=== PATIENT | female | born 1995 | race African-American/Black ===

== ENCOUNTER 2020-05-15 00:03 | Emergency (ER) | payer BC ==
[~2020-05-15] VITALS: Ht 154.9 cm; Wt 63.6 kg
[2020-05-15 01:10] VITALS: BP 118/82
--- NOTE | 2020-05-15 01:55 | PHYS DOC ---
Past History Past Medical History: Anxiety, Asthma General Adult EDM: Chief Complaint: ASTHMA HPI: HPI: "My.. asthma is worse tonight.. " " I need some meds and breathing treatments..." " I can't wait around all night.." Patient is a 24 year old female who presents with above hx of asthma exacerbation. Patient not has been on steroids recently. Has been exposed to mold in her apartment. Patient never has never been intubated for her asthma. Has never has been hospitalized for asthma exacerbations. Asthma exacerbations appears at seasonal episodes or changes. . Patient does not know her best peak flow. Patient does not do flu vaccinations. Patient did not do Pneumovax. Patient denies any travel or specific ill contacts. Patient denies any history of immunosuppression. Patient does not have a asthma rescue plan. No history of PFTs. Patient has normal sats. Patient is amatory without problems. Patient does have some scattered wheezes. Pt no intercostal retractions. No respiratory distress. Patient denies any specific ill contacts. No recent travel outside [facility] area. Patient has had symptoms for last 2 days.. Patient does not follow-up with primary care. Pt. has not tried any over the counter meds for her seasonal allergies. Review of Systems: Review of Systems: Constitutional: Denies fever or chills Eyes: Denies change in visual acuity HENT: Complaints of nasal congestion and seasonal allergies. Respiratory: Complaints of wheezing. Cardiovascular: Denies chest pain or edema GI: Denies abdominal pain, nausea, vomiting, bloody stools or diarrhea : Denies dysuria Musculoskeletal: Denies back pain or joint pain Integument: Denies rash Neurologic: Denies headache, focal weakness or sensory changes Endocrine: Denies polyuria or polydipsia Lymphatic: Denies swollen glands Psychiatric: Hx of anxiety Family History: Family History: Noncontributory to presentation Current Medications: Current Meds: Current Medications Medications (Trade) Dose Ordered Sig/Pamella Start Time Stop Time Status Last Admin Dose Admin Albuterol Sulfate (Ventolin Hfa Inhaler) 1 puff 1X ONCE 05/15/20 02:00 05/15/20 02:01 05/15/20 01:55 1 PUFF Allergies: Allergies: Allergies Coded Allergies Type Severity Reaction Last Updated Verified No Known Drug Allergies 05/15/20 No Physical Exam: PE: Constitutional: Well developed, well nourished, no acute distress, non-toxic appearance. [] HENT: Normocephalic, atraumatic, bilateral external ears normal, oropharynx frantz st, no oral exudates, nose slightly en large turbinates. Some clear rhinorrhea. Some mild posterior pharyngeal drainage. Eyes: PERRLA, EOMI, conjunctiva normal, no discharge. [] Neck: Normal range of motion, no tenderness, supple, no stridor. No adenopathy Cardiovascular:Heart rate regular rhythm, no murmur [] Lungs & Thorax: Bilateral breath sounds equal apex with few scattered wheezes on auscultation [. Has] no intercostal retractions. No desaturations. The trachea is midline. Abdomen: Bowel sounds normal, soft, no tenderness, no masses, no pulsatile masses. [] Skin: Warm, dry, no erythema, no rash. [] Back: No tenderness, no CVA tenderness. [] Extremities: No tenderness, no cyanosis, no clubbing, ROM intact, no edema. No cording in legs. Neurologic: Alert and oriented X 3, normal motor function, normal sensory function, no focal deficits noted. [] Psychologic: Affect anxious, impatient, angry that there is a emergency room delaying in care. Feels she should have been seen immediately in spite of a high volumes in the emergency department. Pt was seen by Nurse shortly after arrival and place in [facility]. EKG: EKG: [] Radiology/Procedures: Radiology/Procedures: [] Heart Score: Risk Factors: Risk Factors: DM, Current or recent (<one month) smoker, HTN, HLP, family history of CAD, obesity. Risk Scores: Score 0 - 3: 2.5% MACE over next 6 weeks - Discharge Home Score 4 - 6: 20.3% MACE over next 6 weeks - Admit for Clinical Observation Score 7 - 10: 72.7% MACE over next 6 weeks - Early Invasive Strategies Course & Med Decision Making: Course & Med Decision Making Pertinent Labs and Imaging studies reviewed. (See chart for details) Patient to take prednisone 50 mg a day for 5 days. Patient use MDI with spacer 2 puffs 4 times a day. Patient follow-up primary care. Patient encouraged to get flu vaccination. Patient encouraged to wear a mask that covers her nose and mouth at all times. Patient encouraged to develop asthma action plan. Patient follow-up primary care. Patient return for any concerns. Patient was instructed on how to use MDI with a spacer by respiratory. Patient may take Benadryl 25 mg up to 4 times a day for nasal congestion and drainage. Must establish a primary care. Document peak flow s in AM pre and post MDI tx. and show results to primary on followup. Patient consider [id number] nasal steroids during seasonal exacerbations for congestion and nasal drainage. Patient encouraged to get flu vaccination. Patient encouraged to get Pneumovax. Patient encouraged to return if any concerns, but must follow up. Impression: 1. Mild asthma exacerbation [] Dragon Disclaimer: Dragon Disclaimer: This electronic medical record was generated, in whole or in part, using a voice recognition dictation system. Departure Departure: Disposition: 01 DC HOME SELF CARE/HOMELESS Condition: STABLE Referrals: PCP,NO (PCP) Scripts Prednisone (PREDNISONE) 50 Mg Tablet 50 MG PO DAILY for astma for 5 Days, #5 TAB Prov: NICK ADKINS MD 05/15/20 Shantell Disclaimer This chart was dictated in whole or in part using Voice Recognition software in a busy, high-work load, and often noisy Emergency Department environment. It may contain unintended and wholly unrecognized errors or omissions. NICK ADKINS MD May 15, 2020 01:55
[2020-05-15] MEDS ORDERED: ALBUTEROL SULFATE 8GM INHALER. INH ONE (02:00)
[2020-05-15] MEDS ORDERED: predniSONE 10 MG TABLET PO ONE (02:00)
[2020-05-15] MEDS ORDERED: PRED50TA PO (02:00)
== END 2020-05-15 02:12 | disposition home or self-care (01) ==
LOC: ER 00:03
DX: J45.901 Unspecified asthma with (acute) exacerbation (principal); F41.9 Anxiety disorder, unspecified
CPT/HCPCS: 94640; 99283; J7512; J7613; 94664

== ENCOUNTER 2020-08-09 21:56 | Emergency (ER) | payer BC ==
[~2020-08-09] VITALS: Ht 154.9 cm; Wt 74.9 kg
[~2020-08-09 21:56] MED LIST: PRED50TA PO
--- NOTE | 2020-08-09 22:09 | PHYS DOC ---
Past History Past Medical History: Anxiety, Asthma Past Surgical History: No Surgical History Smoking: Non-smoker Alcohol Use: None Drug Use: None General Adult EDM: Chief Complaint: ABDOMINAL PAIN HPI: HPI: Patient is a 24 year old female that presents to the ED with "crampy" abdominal pain for the last few weeks. Pain is intermittent and located periumbilical, a 5/10 on pain scale. Pain is non-radiating. Patient also reports nausea for the last week, but no vomiting. Last menstrual period was 07/09/20, and patient is sexually active with no concern for STI. Last bowel movement was yesterday and normal. Denies dysuria, constipation, vaginal bleeding or discharge. Patient denies history of previous pregnancies. No other symptoms or complaints at this time. Review of Systems: Review of Systems: Constitutional: Denies fever or chills Eyes: Denies redness or eye pain HENT: Denies nasal congestion or sore throat Respiratory: Denies cough or shortness of breath Cardiovascular: Denies chest pain or palpitations GI: Positive for crampy abdominal pain and nausea; denies vomiting : Denies dysuria or hematuria Musculoskeletal: Denies back pain or joint pain Integument: Denies rash or skin lesions Neurologic: Denies headache, focal weakness or sensory changes Complete systems were reviewed and found to be within normal limits, except as documented in this note. Allergies: Allergies: Allergies Coded Allergies Type Severity Reaction Last Updated Verified No Known Drug Allergies 05/15/20 No Physical Exam: PE: Constitutional: Well developed, well nourished, no acute distress, non-toxic appearance HENT: Normocephalic, atraumatic Eyes: PERRL, EOMI, conjunctiva normal, no discharge Neck: Normal range of motion, no tenderness, supple Lungs & Thorax: No respiratory distress, equal chest rise and fall Abdomen: Soft, no tenderness, no guarding/rebound tenderness/distention Skin: Warm, dry, no erythema, no rash Back: No tenderness, no CVA tenderness Extremities: No tenderness, ROM intact, no edema Neurologic: Alert and oriented X 3, normal motor function, normal sensory function, no focal deficits noted Psychologic: Affect normal, judgment normal Course & Med Decision Making: Course & Med Decision Making Pertinent Labs reviewed. (See chart for details) Patient is a 24 year old female that presented with abdominal pain for last couple weeks. Due to chance of , we checked a test and it was positive. UA without acute process. Abdomen nonperitoneal.. Recommended patient start a vitamin, and schedule an appointment with an OB. Rx also written for Zofran ODT. 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 Discussed findings and plan with patient and family, who acknowledge understanding and agreement. Shantell Disclaimer: Shantell Disclaimer: This electronic medical record was generated, in whole or in part, using a voice recognition dictation system. Departure Departure: Impression: Primary Impression: Qualified Codes: Z34.90 - Encounter for supervision of normal , unspecified, unspecified trimester Disposition: 01 DC HOME SELF CARE/HOMELESS Condition: STABLE Referrals: MIRANDA KAIS[facility] (PCP) Patient Instructions: ABCs of Scripts Pnv No.122/Iron/Folic Acid ( Multi Tablet) 1 Each Tablet 1 TAB PO DAILY for for 30 Days, #30 TAB 0 Refills Prov: JAYASHREE CAMPOS DO 08/09/20 Ondansetron (ONDANSETRON ODT) 4 Mg Tab.rapdis 1 TAB PO PRN Q6-8HRS PRN for NAUSEA, #16 TAB Prov: JAYASHREE CAMPOS DO 08/09/20 JAYASHREE CAMPOS DO Aug 09, 2020 22:09
[2020-08-09 22:10] VITALS: BP 124/84
[2020-08-09 22:36] LABS: BACTERIA,URINE 0 /HPF (0-FEW); BILIRUBIN,URINE NEG (NEG); CLARITY,URINE CLEAR; COLOR,URINE YELLOW; GLUCOSE,URINE NEG (NEG); NITRITE,URINE NEG (NEG); RBC,URINE 0 /HPF (0-2); SQUAMOUS EPITHELIAL CELL,UR FEW /LPF; UROBILINOGEN,URINE 0.2 mg/dL (0.2 mg/dL); WBC,URINE OCC /HPF (0-4)
[2020-08-09] MEDS ORDERED: PNV1TABL78 PO (22:54)
[2020-08-09] MEDS ORDERED: ONDA4TAB12 PO (22:54)
== END 2020-08-09 22:57 | disposition home or self-care (01) ==
LOC: ER 21:56
DX: O26.891 Other specified pregnancy related conditions, first trimester (principal); R10.33 Periumbilical pain; O99.511 Diseases of the respiratory system complicating pregnancy, first trimester; J45.909 Unspecified asthma, uncomplicated; Z3A.00 Weeks of gestation of pregnancy not specified
CPT/HCPCS: 81001; 81025; 99283

== ENCOUNTER 2020-09-14 20:37 | Emergency (ER) | payer BC ==
[~2020-09-14] VITALS: Ht 154.9 cm; Wt 73.2 kg
[~2020-09-14 20:37] MED LIST changes: +ONDA4TAB12 PO; +PNV1TABL78 PO
--- NOTE | 2020-09-14 20:51 | PHYS DOC ---
Past History Past Medical History: Asthma (JAYASHREE PITTMAN APRN) Past Surgical History: No Surgical History (JAYASHREE PITTMAN APRN) Smoking: Non-smoker Alcohol Use: None Drug Use: None (JAYASHREE PITTMAN APRN) Adult General Chief Complaint Chief Complaint: VAGINAL BLEEDING HPI HPI Patient is a 24-year-old female presents emergency department complaining of nausea all day with vomiting x2 today while at work, patient reports being just under 10 weeks .. Patient states she was at work for the past 2 hours and was unable to take it any longer and had to go home ill. Patient also states she noticed some dark red vaginal spotting today. Patient denies any lower abdominal pain, denies cramping of her abdomen. Patient denies diarrhea or constipation. Patient denies any fever or chills, denies chest pain, denies shortness of breath, denies chest congestion or nasal congestion, denies visual changes, denies headaches, denies loss of taste or loss of smell. Patient states she sees OB specialist Dr. Conn at [facility]. Patient reports having a normal sonogram last week. Patient states this is her first . Patient reports her last menstrual cycle was July 092019, patient reports a EDC April 15, 2021. Patient denies any other vaginal discharge, denies burning with urination or urinary tract infection type signs and symptoms, patient denies STI concerns. Patient denies any other physical concerns or physical complaints. (JAYASHREE PITTMAN APRN) Review of Systems Review of Systems 14 body systems of review of systems have been reviewed. See HPI for pertinent positives and negative responses, otherwise all other systems are negative, nonpertinent or noncontributory. (JAYASHREE PITTMAN APRN) Allergies Allergies Allergies Coded Allergies Type Severity Reaction Last Updated Verified No Known Drug Allergies 05/15/20 No (JAYASHREE PITTMAN APRN) Physical Exam Physical Exam Constitutional: Well developed, well nourished, no acute distress, non-toxic appearance. 24-year-old female in no apparent distress. HENT: Normocephalic, atraumatic, bilateral external ears normal, oropharynx moist, no oral exudates, nose normal. Eyes: PERRLA, EOMI, conjunctiva normal, no discharge. Neck: Normal range of motion, no tenderness, supple, no stridor. Cardiovascular:Heart rate regular rhythm, no murmur Lungs & Thorax: Bilateral breath sounds clear to auscultation Abdomen: Bowel sounds normal, soft, no tenderness, no masses, no pulsatile masses. Skin: Warm, dry, no erythema, no rash. Back: No tenderness, no CVA tenderness. Extremities: No tenderness, no cyanosis, no clubbing, ROM intact, no edema. Neurologic: Alert and oriented X 3, normal motor function, normal sensory function, no focal deficits noted. Psychologic: Affect normal, judgement normal, mood normal. (JAYASHREE PITTMAN APRN) Current Patient Data Lab Results Laboratory Tests Test 09/14/20 20:50 09/14/20 21:05 Urine Collection Type Unknown Urine Color Irene Urine Clarity Clear Urine pH 5.5 Urine Specific [place] >=1.030 Urine Protein Neg Urine Glucose (UA) Neg mg/dL Urine Ketones (Stick) 15 mg/dL Urine Blood Trace Urine Nitrite Neg Urine Bilirubin Neg Urine Urobilinogen Dipstick 0.2 mg/dL Urine Leukocyte Esterase Neg Urine RBC 0 /HPF Urine WBC 0 /HPF Urine Squamous Epithelial Cells Mod /LPF Urine Bacteria 0 /HPF White Blood Count 11.2 x10^3/uL Red Blood Count 4.50 x10^6/uL Hemoglobin 12.3 g/dL Hematocrit 38.0 % Mean Corpuscular Volume 85 fL Mean Corpuscular Hemoglobin 27 pg Mean Corpuscular Hemoglobin Concent 32 g/dL Red Cell Distribution Width 14.9 % Platelet Count 340 x10^3/uL Neutrophils (%) (Auto) 72 % Lymphocytes (%) (Auto) 19 % Monocytes (%) (Auto) 7 % Eosinophils (%) (Auto) 2 % Basophils (%) (Auto) 0 % Neutrophils # (Auto) 8.0 x10^3uL Lymphocytes # (Auto) 2.1 x10^3/uL Monocytes # (Auto) 0.8 x10^3/uL Eosinophils # (Auto) 0.2 x10^3/uL Basophils # (Auto) 0.0 x10^3/uL Sodium Level 139 mmol/L Potassium Level 3.6 mmol/L Chloride Level 103 mmol/L Carbon Dioxide Level 25 mmol/L Anion Gap 11 Blood Urea Nitrogen 12 mg/dL Creatinine 0.7 mg/dL Estimated GFR (Cockcroft-Gault) 125.5 Glucose Level 91 mg/dL Calcium Level 9.7 mg/dL Current Medications Medications (Trade) Dose Ordered Sig/Pamella Route PRN Reason Start Time Stop Time Status Last Admin Dose Admin Ondansetron HCl (Zofran Odt) 4 mg 1X ONCE PO 09/14/20 21:15 09/14/20 21:17 DC 09/14/20 21:18 (JAYASHREE PITTMAN APRN) EKG EKG [] (JAYASHREE PITTMAN APRN) Radiology/Procedures Radiology/Procedures [] (JAYASHREE PITTMAN APRN) Radiology/[place] [id number] IMAGING REPORT Signed PATIENT: LYNETTE CAMACHO ACCOUNT: [id number] : 1995 LOCATION: ER AGE: 24 SEX: F EXAM STATUS: REG ER ORD. PHYSICIAN: JAYASHREE PITTMAN APRN REASON: VAGINAL BLEEDING PROCEDURE: OB <14 WKS Exam: Ultrasound pelvis Indication: Vaginal bleeding Technique: Real-time grayscale and color Doppler images of the pelvis were obtained by the department geotechnical engineering technician. Comparisons: None FINDINGS: Uterus measures 10.0 x 9.5 x 8.0 cm. Within the endometrium there is a gestational sac with pole which measures 3.1 cm corresponding to 10 weeks 0 days gestation. heart rate is measured at all 162 bpm. Right ovary measures 3.7 x 2.0 x 2.0 cm. Left ovary measures 3.5 x 2.5 x 2.5 cm. Vascular flow identified within the ovaries bilaterally. No free fluid identified in the pelvis. IMPRESSION: 1. Single live intrauterine gestation of 10 weeks 2 days by LMP with concordant ultrasound. 2. Dedicated survey is recommended at 18-20 weeks gestation. Electronically signed by: Tamra Ramirez MD (09/14/2020 10:14 PM) [facility] DICTATED AND SIGNED BY: TAMRA RAMIREZ MD DATE: 09/14/202211 CC: JAYASHREE PITTMAN APRN; MIRANDA KAISER ~MTH0 0 (NICK ADKINS MD) Heart Score Risk Factors: Risk Factors: DM, Current or recent (<one month) smoker, HTN, HLP, family history of CAD, obesity. Risk Scores: Risk Factors: DM, Current or recent (<one month) smoker, HTN, HLP, family history of CAD, obesity. (JAYASHREE PITTMAN APRN) Course & Med Decision Making Course & Med Decision Making Pertinent Labs and Imaging studies reviewed. (See chart for details) 24-year-old female, vital signs reviewed, presents emergency department with concerns of vaginal bleeding with nausea vomiting while being . Patient's physical exam was unremarkable, the patient is in no apparent distress. Will obtain a urine assay, urine GC/chlamydia in ER today. Will obtain heart tones, draw CBC/BMP/beta hCG quant/type and Rh, will rule out RhoGam candidate. Will give 4 mg ODT Zofran in ED today. heart tones 166 performed by ED nursing staff at bedside by Doppler. The patient's urine was not infected, patient currently in radiology for sono study, type and screen pending to rule out RhoGam candidate. Discussed patient case with ED attending Dr. Adkins who has agreed to assume care at this time. (JAYASHREE PITTMAN APRN) Course & Med Decision Making Impression: 1. Threaten 2. Intrauterine -EDC 04/12/2021 3 . Mother blood type O+ 4. Hemoglobin 11.2 5. Beta hCG is 137, 508 6. G1 Patient continue vitamins. Keep track of bleeding. If further problems follow-up at hospital where she plans to deliver for continuity of care. Follow-up with primary care as well as her HYDROGRAPHIC ENGINEER. Follow-up pending cultures and labs. (NICK ADKINS MD) Dragon Disclaimer Dragon Disclaimer This electronic medical record was generated, in whole or in part, using a voice recognition dictation system. (JAYASHREE PITTMAN APRN) Departure Departure: Referrals: MIRANDA KAISER (PCP) JAYASHREE PITTMAN APRN Sep 14, 2020 20:51 NICK ADKINS MD Sep 14, 2020 23:05
[2020-09-14] MEDS ORDERED: ONDANSETRON ODT 4 MG TAB.RAPDIS PO ONE (21:15)
[2020-09-14 21:30] LABS: BASO % 0 % (0-3); EOS # 0.2 x10^3/uL (0.0-0.7); EOS % 2 % (0-3); HEMOGLOBIN 12.3 g/dL (12.0-15.5); LYMPH # 2.1 x10^3/uL (1.0-4.8); LYMPH % 19 % (24-48); MEAN CORPUSCULAR HEMOGLOBIN 27 pg (25-35); MEAN CORPUSCULAR HGB CONC 32 g/dL (31-37); MEAN CORPUSCULAR VOLUME 85 fL (79-100); MONO # 0.8 x10^3/uL (0.0-1.1); MONO % 7 % (0-9); NEUT % 72 % (31-73); PLATELET COUNT 340 x10^3/uL (140-400); RED CELL DISTRIBUTION WIDTH 14.9 % (11.5-14.5); WHITE BLOOD COUNT 11.2 x10^3/uL (4.0-11.0)
[2020-09-14 21:39] LABS: CALCIUM 9.7 mg/dL (8.5-10.1); CREATININE 0.7 mg/dL (0.6-1.0); GFR 125.5; POTASSIUM 3.6 mmol/L (3.5-5.1)
[2020-09-14 21:40] LABS: BACTERIA,URINE 0 /HPF (0-FEW); BILIRUBIN,URINE NEG (NEG); CLARITY,URINE CLEAR; COLOR,URINE AMBER; GLUCOSE,URINE NEG (NEG); NITRITE,URINE NEG (NEG); RBC,URINE 0 /HPF (0-2); SQUAMOUS EPITHELIAL CELL,UR MOD /LPF; UROBILINOGEN,URINE 0.2 mg/dL (0.2 mg/dL); WBC,URINE 0 /HPF (0-4)
--- NOTE | 2020-09-14 22:17 | RAD ---
Exam: Ultrasound pelvis Indication: Vaginal bleeding Technique: Real-time grayscale and color Doppler images of the pelvis were obtained by the department marketing underwriter. Comparisons: None FINDINGS: Uterus measures 10.0 x 9.5 x 8.0 cm. Within the endometrium there is a gestational sac with sophia e which measures 3.1 cm corresponding to 10 weeks 0 days gestation. heart rate is measured at a ll 162 bpm. Right ovary measures 3.7 x 2.0 x 2.0 cm. Left ovary measures 3.5 x 2.5 x 2.5 cm. Vascular flow identified within the ovaries bilaterally. No free fluid identified in the pelvis. IMPRESSION: 1. Single live intrauterine gestation of 10 weeks 2 days by LMP with concordant ultrasound. 2. Dedicated survey is recommended at 18-20 weeks gestation. Electronically signed by: Tamra Sharp MD (09/14/2020 10:14 PM) [facility]
[2020-09-14 23:35] VITALS: BP 115/81
== END 2020-09-14 23:35 | disposition home or self-care (01) ==
LOC: ER 20:37
DX: O20.0 Threatened abortion (principal); O21.9 Vomiting of pregnancy, unspecified; R79.89 Other specified abnormal findings of blood chemistry; J45.909 Unspecified asthma, uncomplicated; Z3A.10 10 weeks gestation of pregnancy
CPT/HCPCS: 76801; 80048; 81001; 84702; 85025; 86850; 86900; 86901; 87491; 87591; 99284; Q0162

== ENCOUNTER 2021-05-08 02:52 | Emergency (ER) | payer BC ==
[~2021-05-08] VITALS: Ht 154.9 cm; Wt 69.0 kg
--- NOTE | 2021-05-08 02:57 | PHYS DOC ---
Past History Past Medical History: Anemia, Asthma, IBS, UTI Past Medical History G1T1 Past Surgical History: Other Additional Past Surgical Histo: wisdom teeth Smoking: Non-smoker Alcohol Use: None Drug Use: None General Adult HPI: HPI: "...I woke up with some abdomen pain... right here in center.. I have had some GERD stuff in pass.. My mom said I should come in and get checked for infection.. sometimes my mom said you can get a UTI after delivery.. I delivered Apr.19.. .. He was 8 pounds and 16 oz... 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 Patient advised to take some ibuprofen before coming out and now her pain is almost resolved. Patient last ate at 1900 hours diet consisting of fruit and soup. No history of bad food intake. No history of specific ill contacts. Did have Covid vaccinations x2 [employer] in March or shortly thereafter for the second vaccination.. Patient has not had flu vaccination yet this season. Patient has not had Pneumovax. Patient denies any history of trauma. Patient denies any travel outside the [place] area. Patient denies any history immunosuppression. Patient does have a history of GERD, asthma, anxiety, 1, term 1, anemia, IBS, and recent vaginal delivery 04/19. Patient reports no dysuria. No fever or chills. Normal stools. No history of EGD or colonoscopy. Pt.follow s with [facility] for primary. Patient denies any history of STDs. Has had only 1 lifetime sexual partner.. No history of ovarian cyst. No history of endometriosis. No history of any intestinal surgeries. Review of Systems: Review of Systems: Constitutional: Denies fever or chills Eyes: Denies change in visual acuity HENT: Denies nasal congestion or sore throat Respiratory: Denies cough or shortness of breath Cardiovascular: Denies chest pain or edema GI: Complains of abdominal pain, nausea,. Denies vomiting, bloody stools or diarrhea : Denies dysuria Musculoskeletal: Denies back pain or joint pain Integument: Denies rash Neurologic: Denies headache, focal weakness or sensory changes Endocrine: Denies polyuria or polydipsia Lymphatic: Denies swollen glands Psychiatric: Denies depression or anxiety Family History: Family History: Noncontributory presentation Current Medications: Current Meds: See nursing for home meds Allergies: Allergies: Allergies Coded Allergies Type Severity Reaction Last Updated Verified No Known Drug Allergies 05/15/20 No Physical Exam: PE: Constitutional: no acute distress, non-toxic appearance. [] HENT: Normocephalic, atraumatic, bilateral external ears normal, oropharynx moist, no oral exudates, nose normal. [] Eyes: PERRLA, EOMI, conjunctiva normal, no discharge. [] Glasses. Neck: Normal range of motion, no tenderness, supple, no stridor. [] Cardiovascular:Heart rate regular rhythm, no murmur [] Lungs & Thorax: Bilateral breath sounds equal and apex few scattered wheezes auscultation [] Abdomen: Bowel sounds hyperactive, soft, mild mid abdomen tenderness, no masses, no pulsatile masses. [] Rebound to mid abdomen. No psoas sign. Skin: Warm, dry, no erythema, no rash. [] Back: No tenderness, no CVA tenderness. [] Extremities: No tenderness, no cyanosis, no clubbing, ROM intact, no edema. Cording appreciated Neurologic: Alert and oriented X 3, normal motor function, normal sensory function, no focal deficits noted. [] Psychologic: Affect anxious,, judgement normal, mood normal. [] EKG: EKG: [] Radiology/Procedures: Radiology/Procedures: [] Heart Score: C/O Chest Pain: N/A Risk Factors: Risk Factors: DM, Current or recent (<one month) smoker, HTN, HLP, family history of CAD, obesity. Risk Scores: Score 0 - 3: 2.5% MACE over next 6 weeks - Discharge Home Score 4 - 6: 20.3% MACE over next 6 weeks - Admit for Clinical Observation Score 7 - 10: 72.7% MACE over next 6 weeks - Early Invasive Strategies Course & Med Decision Making: Course & Med Decision Making Pertinent Labs and Imaging studies reviewed. (See chart for details) Stay on a clear fluid diet for the next 2 days. No solids. No milk products. Allow bowel rest. Take Tylenol and ibuprofen for discomfort. Follow-up primary care. Return if any concerns. Push vitamin C drinks. Push fluids. Take Keflex 500 mg 3 times a day for 7 days. Then take Diflucan 100 mg daily for 3 days. Follow-up urine culture. Return if any concerns. Impression: 1. Abdomen pain 2. Recent vaginal delivery April 19 3. UTI [] Dragon Disclaimer: Dragon Disclaimer: This electronic medical record was generated, in whole or in part, using a voice recognition dictation system. Departure Departure: Referrals: MIRANDA KAISER (PCP) Scripts Fluconazole (DIFLUCAN) 100 Mg Tablet 100 MG PO DAILY for post Keflex for 3 Days, #3 TAB Prov: NICK ADKINS MD 05/08/21 Cephalexin (KEFLEX) 500 Mg Capsule 500 MG PO TID for UTI for 7 Days, #21 CAP Prov: NICK ADKINS MD 05/08/21 Dragon Disclaimer This chart was dictated in whole or in part using Voice Recognition software in a busy, high-work load, and often noisy Emergency Department environment. It may contain unintended and wholly unrecognized errors or omissions. Dragon Disclaimer This chart was dictated in whole or in part using Voice Recognition software in a busy, high-work load, and often noisy Emergency Department environment. It may contain unintended and wholly unrecognized errors or omissions. Dragon Disclaimer This chart was dictated in whole or in part using Voice Recognition software in a busy, high-work load, and often noisy Emergency Department environment. It may contain unintended and wholly unrecognized errors or omissions. NICK ADKINS MD May 08, 2021 02:57
[2021-05-08 03:54] LABS: BARBITURATES NEG (NEG); BENZODIAZEPINES NEG (NEG); CANNABINOIDS NEG (NEG); COCAINE NEG (NEG); METHADONE NEG (NEG); OPIATES NEG (NEG); PHENCYCLIDINE NEG (NEG)
[2021-05-08 03:55] LABS: AMPHETAMINE/METHAMPHETAMINE NEG (NEG)
[2021-05-08 04:09] LABS: BACTERIA,URINE FEW /HPF (0-FEW); BILIRUBIN,URINE NEG (NEG); CLARITY,URINE HAZY; COLOR,URINE YELLOW; GLUCOSE,URINE NEG (NEG); NITRITE,URINE NEG (NEG); RBC,URINE 0 /HPF (0-2); SQUAMOUS EPITHELIAL CELL,UR MOD /LPF; UROBILINOGEN,URINE 0.2 mg/dL (0.2 mg/dL)
[2021-05-08 05:00] VITALS: BP 122/55
[2021-05-08] MEDS ORDERED: CEPH500C PO (05:10)
[2021-05-08] MEDS ORDERED: FLUC100T7 PO (05:10)
[2021-05-08] MEDS ORDERED: SMZ/TMP 800/160MG TABLET. PO ONE (05:15)
[2021-05-08] MEDS ORDERED: CEPHALEXIN 250 MG CAPSULE PO ONE (05:30)
== END 2021-05-08 05:35 | disposition home or self-care (01) ==
LOC: ER 02:52
DX: O86.20 Urinary tract infection following delivery, unspecified (principal); J45.909 Unspecified asthma, uncomplicated; K58.9 Irritable bowel syndrome, unspecified; Z86.2 Personal history of diseases of the blood and blood-forming organs and certain disorders involving the immune mechanism; Z98.890 Other specified postprocedural states
CPT/HCPCS: 36415; 80307; 81001; 81025; 87086; 99283